=== PATIENT | female | born 1955 | race Caucasian/White ===

== ENCOUNTER 2020-04-24 13:49 | Outpatient (CLI) | payer BC, SELFPAY ==
[2020-04-24 15:02] LABS: Potassium 3.9 mmol/L (3.4-5.0)
[2020-04-24 15:19] LABS: Alanine Aminotransferase 23 U/L (4-35); Albumin Level 3.5 g/dL (3.5-5.1); Alkaline Phosphatase 63 U/L (38-126); Aspartate Amino Transferase 16 U/L (14-36); Bilirubin,Total 0.4 mg/dL (0.2-1.3); Blood Urea Nitrogen 19 mg/dL (7-17); Calcium 10.1 mg/dL (8.4-10.2); Carbon Dioxide 28 mmol/L (22-30); Chloride 109 mmol/L (98-107); Estimated Glomerular Filt Rate 56; Glucose 179 mg/dL (65-105); Sodium 141 mmol/L (137-145)
== END 2020-04-24 13:50 | disposition home or self-care (01) ==
PROVIDERS: PCP Family Medicine; Visit Provider Internal Medicine Cardiovascular Disease
DX: I25.10 Atherosclerotic heart disease of native coronary artery without angina pectoris (principal)
CPT/HCPCS: 36415; 80053

== ENCOUNTER 2020-06-14 14:27 | Outpatient (CLI) | payer BC, SELFPAY ==
[2020-06-14 14:56] LABS: Basophils Percent Auto 0.6 % (0.2-1.2); Eosinophils Percent Auto 0.8 % (0-4.4); Hematocrit 42.6 % (37.0-47.0); Hemoglobin 13.9 g/dL (12.0-15.0); Immature Granulocyte Absolute 0.06 K/mm3 (0.00-0.031); Immature Granulocyte Percent A 1.1 % (0-0.5); Lymphocytes Absolute Auto 1.68 K/mm3 (0.9-3.2); Lymphocytes Percent Auto 31.9 % (18.3-44.2); Mean Corpuscular HGB Conc 32.6 g/dl (32-36); Mean Corpuscular Hemoglobin 31.4 pg (26-34); Mean Corpuscular Volume 96.4 fl (80-100); Mean Platelet Volume 10.2 fl (7.4-10.4); Monocytes Absolute Auto 0.5 K/mm3 (0.1-0.6); Monocytes Percent Auto 9.1 % (2.6-8.5); Neutrophils Percent Auto 56.5 % (45.5-73.1); Platelet Count Result 144 k/mm3 (150-375); Red Blood Count 4.42 M/mm3 (4.2-5.4); Red Cell Distribution Width 20.3 % (11.5-14.5); White Blood Count 5.3 K/mm3 (4.5-10.0)
[2020-06-14 15:07] LABS: Alanine Aminotransferase 38 U/L (4-35); Albumin Level 3.2 g/dL (3.5-5.1); Alkaline Phosphatase 118 U/L (38-126); Anion Gap 8.2 mmol/L (7-16); Aspartate Amino Transferase 29 U/L (14-36); Bilirubin,Total 1.1 mg/dL (0.2-1.3); Blood Urea Nitrogen 8 mg/dL (7-17); Calcium 10.1 mg/dL (8.4-10.2); Carbon Dioxide 27 mmol/L (22-30); Chloride 107 mmol/L (98-107); Cholesterol 202 mg/dL (0-200); Estimated Glomerular Filt Rate 56; Glucose 141 mg/dL (65-105); HDL Direct 49 mg/dL; Magnesium 1.9 mg/dL (1.6-2.3); Potassium 3.2 mmol/L (3.4-5.0); Sodium 139 mmol/L (137-145); Triglycerides 240 mg/dL (<150)
[2020-06-14 15:18] LABS: LDL Cholesterol Direct 118 mg/dL
[2020-06-14 15:38] LABS: Total Triiodothyronine (T3) 1.29 NG/ML (0.97-1.69)
[2020-06-14 15:56] LABS: Iron 76 ug/dL (37-170)
[2020-06-14 16:06] LABS: Percent Iron Saturation 29 % (20-50)
[2020-06-14 16:14] LABS: Free T4 Free Thyroxine 1.43 ng/mL (0.78-2.19)
[2020-06-14 16:18] LABS: Vitamin D 25 Hydroxy 12.8 ng/mL
== END 2020-06-14 14:28 | disposition home or self-care (01) ==
PROVIDERS: PCP Family Medicine; Visit Provider Nurse Practitioner Family
DX: R42 Dizziness and giddiness (principal); R00.0 Tachycardia, unspecified; E78.2 Mixed hyperlipidemia; E83.52 Hypercalcemia; R53.83 Other fatigue; M62.81 Muscle weakness (generalized); Z13.6 Encounter for screening for cardiovascular disorders
CPT/HCPCS: 36415; 80053; 80061; 82306; 82607; 82746; 83540; 83550; 83735; 84100; 84439; 84443; 84480; 85025

== ENCOUNTER 2020-06-17 09:04 | Outpatient (NON) | payer BC, SELFPAY ==
[2020-06-17 09:48] LABS: Creatinine Urine 211.6 mg/dL
[2020-06-17 09:52] LABS: MALB Creatinine Ratio 3.8 mg/g (0-30)
== END 2020-06-17 09:05 ==
PROVIDERS: PCP Family Medicine; Visit Provider Nurse Practitioner Family
DX: R42 Dizziness and giddiness (principal); R00.0 Tachycardia, unspecified; E78.2 Mixed hyperlipidemia; E55.9 Vitamin D deficiency, unspecified; E83.52 Hypercalcemia; R53.83 Other fatigue; M62.81 Muscle weakness (generalized); Z13.6 Encounter for screening for cardiovascular disorders
CPT/HCPCS: 82043

== ENCOUNTER 2020-06-26 07:42 | Outpatient (CLI) | payer BC, SELFPAY ==
[2020-06-26 08:16] LABS: Anion Gap 2 mmol/L (8-16); Blood Urea Nitrogen 9 mg/dL (7-17); Calcium 10.7 mg/dL (8.4-10.2); Carbon Dioxide 27 mmol/L (22-30); Chloride 110 mmol/L (98-107); Estimated Glomerular Filt Rate 41; Glucose 102 mg/dL (65-105); Magnesium 2.1 mg/dL (1.6-2.3); Phosphorus 2.6 mg/dL (2.5-4.5); Potassium 4.3 mmol/L (3.4-5.0); Sodium 139 mmol/L (137-145)
== END 2020-06-26 07:43 | disposition home or self-care (01) ==
PROVIDERS: PCP Family Medicine; Visit Provider Nurse Practitioner Family
DX: R00.0 Tachycardia, unspecified (principal); E87.6 Hypokalemia; E55.9 Vitamin D deficiency, unspecified; M62.81 Muscle weakness (generalized); R53.83 Other fatigue
CPT/HCPCS: 36415; 80048; 83735; 84100

== ENCOUNTER 2021-01-16 11:30 | Outpatient (CLI) | payer OTHER, SELFPAY | END 2021-01-16 11:31 | disposition home or self-care (01) | LOC: ANHCOVIDVC 11:31 | PROVIDERS: PCP Family Medicine | DX: Z23 Encounter for immunization (principal) | CPT/HCPCS: 0001A; 91300 ==

== ENCOUNTER 2021-02-06 11:28 | Outpatient (CLI) | payer OTHER, SELFPAY | END 2021-02-06 11:29 | disposition home or self-care (01) | LOC: ANHCOVIDVC 11:28 | PROVIDERS: PCP Family Medicine | DX: Z23 Encounter for immunization (principal) | CPT/HCPCS: 0002A; 91300 ==